=== PATIENT | female | born 1975 | race Caucasian/White ===

== ENCOUNTER 2022-01-12 08:30 | Outpatient (CLI) | payer OTHER | END 2022-01-12 08:31 | disposition home or self-care (01) | LOC: BICULT 08:30 | PROVIDERS: ATTEND Family Medicine | DX: I10 Essential (primary) hypertension (principal); R94.4 Abnormal results of kidney function studies; D25.9 Leiomyoma of uterus, unspecified | CPT/HCPCS: 76770 ==